=== PATIENT | female | born 1980 | race African-American/Black ===

== ENCOUNTER 2021-06-17 12:04 | Emergency (ER) | payer MEDICAID ==
[~2021-06-17] VITALS: Ht 170.2 cm; Wt 100.0 kg
[2021-06-17] MEDS ORDERED: IBUPROFEN 600 MG TABLET PO ONE (12:30)
[2021-06-17 14:16] VITALS: BP 137/85
== END 2021-06-17 14:22 | disposition home or self-care (01) ==
LOC: EMS 12:04
DX: S39.92XA Unspecified injury of lower back, initial encounter (principal); V49.9XXA Car occupant (driver) (passenger) injured in unspecified traffic accident, initial encounter; Y93.89 Activity, other specified; Y92.89 Other specified places as the place of occurrence of the external cause; Y99.8 Other external cause status
CPT/HCPCS: 72100; 99283